=== PATIENT | female | born 1975 ===

== ENCOUNTER → 2018-10-06 21:10 | Outpatient (REF) | payer BC, SELFPAY ==
[2018-10-06 21:16] LABS: Bacteria Urine None Seen
[2018-10-06 21:33] LABS: Appearance Urine UA CLEAR; Bilirubin Urine UA NEGATIVE (NEGATIVE); Color Urine UA YELLOW; Glucose Urine UA NEGATIVE (Negative); Ketones Urine UA TRACE (NEGATIVE); Leukocyte Esterase Urine UA NEGATIVE (NEGATIVE); Nitrite Urine UA NEGATIVE (Negative); Occult Blood Urine UA NEGATIVE (Negative); Protein Urine UA NEGATIVE (Negative); Urobilinogen Urine UA 0.2 E.U./dL (0.2)
[2018-10-06 21:44] LABS: Add Manual Diff / Slide Review NO; Basophils Absolute Auto 100 /uL (0-100); Basophils Percent Auto 1.7 % (0-2); Eosinophils Absolute Auto 100 /uL (0-450); Eosinophils Percent Auto 1.4 % (2-4); Hematocrit 40.6 % (36-46); Hemoglobin 13.5 g/dL (12.0-16.0); Lymphocytes Absolute Auto 1800 /uL (1100-4500); Mean Corpuscular HGB Conc 33.3 % (30-36); Mean Corpuscular Hemoglobin 30.1 PG (26-34); Mean Corpuscular Volume 90.3 fL (80-100); Monocytes Absolute Auto 200 /uL (0-900); Monocytes Percent Auto 5.6 % (3-14); Neutrophils Absolute Auto 1600 /uL (1500-7000); Neutrophils Percent Auto 44.3 % (50-75); Platelet Count 304 X10^3/uL (150-400); Red Cell Distribution Width 13.5 % (11.6-14.8); White Blood Cell Count 3.7 X10^3/uL (4.5-11.0)
[2018-10-06 21:49] LABS: Culture Indicated Urine Cult Not Indicated; RBC Urine 0-1/HPF (0-5/HPF); Squamous Epithelial Cell Urine 1-5 /HPF (0-5/HPF); WBC Urine 0-1/HPF (0-5/HPF)
[2018-10-06 23:09] LABS: Alanine Aminotransferase 31 IU/L (9-52); Albumin 4.7 g/dL (3.5-5.0); Albumin Globulin Ratio 1.5 (1.0-2.8); Alkaline Phosphatase 76 U/L (38-126); Aspartate Aminotransferase 27 IU/L (14-36); Bilirubin Total 0.3 mg/dL (0.2-1.3); Blood Urea Nitrogen 14 mg/dL (7-17); Calcium 9.6 mg/dL (8.4-10.2); Carbon Dioxide 31 mmol/L (22-32); Chloride 100 mmol/L (98-107); Estimated Glomerular Filt Rate > 60.0 mL/min (>60); Globulin 3.1 g/dL (1.7-4.1); Glucose 72 mg/dL (70-100); HEMOLYSIS < 15 (0-50); Potassium 4.7 mmol/L (3.4-5.1); Sodium 140 mmol/L (137-145); Total Protein 7.8 g/dL (6.3-8.2); Uric Acid 5.1 mg/dL (2.5-6.2)
[2018-10-06 23:15] LABS: Rheumatoid Factor < 8.6 IU/mL (<12.0)
[2018-10-06 23:31] LABS: Free T3, Triiodothyronine Free 4.36 pg/mL (2.77-5.27)
[2018-10-06 23:40] LABS: Cortisol Random 5.94 ug/dL
[2018-10-06 23:45] LABS: Thyroid Stimulating Hormone 0.35 uIU/mL (0.47-4.68)
[2018-10-11 15:00] LABS: Anti Thyroglobulin Antibody 2 IU/mL (< 2); Thyroid Peroxidase Antibodies 58 IU/mL (< 9)
[2018-10-12 12:56] LABS: Dehydroepiandrosterone (DHEA) 305
== END ==
LOC: LAB 21:10
PROVIDERS: Visit Provider Acupuncturist
DX: E03.9 Hypothyroidism, unspecified (principal); M25.70 Osteophyte, unspecified joint; R53.83 Other fatigue; R60.9 Edema, unspecified
CPT/HCPCS: 36415; 80053; 81001; 82533; 82627; 84439; 84443; 84481; 84550; 85025; 86376; 86430; 86800